=== PATIENT | female | born 1980 | race Hispanic/Latino ===

== ENCOUNTER 2017-02-20 13:11 | Emergency (ER) | payer SELFPAY | END 2017-02-20 13:45 | disposition left against medical advice (07) | LOC: ED 13:11 | DX: R20.0 Anesthesia of skin (principal); R51 Headache; R03.0 Elevated blood-pressure reading, without diagnosis of hypertension; Z53.21 Procedure and treatment not carried out due to patient leaving prior to being seen by health care provider ==

== ENCOUNTER 2017-08-19 20:52 | Emergency (ER) | payer SELFPAY ==
[2017-08-19 21:28] VITALS: BP 181/100
[2017-08-19 22:27] LABS: Basophils % (Auto) 1.2 % (0.0-1.8); Hematocrit 40.3 % (30.3-42.9); Hemoglobin 13.8 gm/dl (10.1-14.3); Mean Corpuscular HGB Conc 34 % (30-34); Mean Corpuscular Hemoglobin 31 pg (28-32); Mean Corpuscular Volume 90 fl (79-97); Platelet Count 243 K/mm3 (140-440); Red Blood Count 4.46 M/mm3 (3.65-5.03); Red Cell Distribution Width 13.3 % (13.2-15.2); White Blood Count 13.3 K/mm3 (4.5-11.0)
[2017-08-19 22:33] LABS: Alanine Aminotransferase 11 units/L (7-56); Albumin 4.2 g/dL (3.9-5); Albumin/Globulin Ratio 1.2 %; Alkaline Phosphatase 108 units/L (35-129); BUN/Creatinine Ratio 15; Bilirubin,Total < 0.20 mg/dL (0.1-1.2); Blood Urea Nitrogen 9 mg/dL (7-17); Calcium 9.7 mg/dL (8.4-10.2); Carbon Dioxide 28 mmol/L (22-30); Glucose 115 mg/dL (65-100); Lipase 59 units/L (13-60); Total Protein 7.6 g/dL (6.3-8.2)
[2017-08-19 22:34] LABS: Anion Gap 15 mmol/L; Chloride 98.5 mmol/L (98-107); Potassium 3.8 mmol/L (3.6-5.0); Sodium 138 mmol/L (137-145)
[2017-08-19 22:51] LABS: Bilirubin,Urine NEG (Negative); Blood,Urine NEG (Negative); Ketones,Urine NEG (Negative); Leukocyte Esterase,Urine NEG (Negative); Nitrite,Urine NEG (Negative); Protein,Urine <15 mg/dL mg/dL (Negative); Urobilinogen,Urine < 2.0 mg/dL (<2.0)
== END 2017-08-20 01:30 | disposition left against medical advice (07) ==
LOC: ED 20:52
DX: R10.32 Left lower quadrant pain (principal); R11.0 Nausea; Z53.21 Procedure and treatment not carried out due to patient leaving prior to being seen by health care provider
CPT/HCPCS: 36415; 80053; 81001; 83690; 85025

== ENCOUNTER 2019-09-18 22:49 | Emergency (ER) | payer SELFPAY ==
--- NOTE | 2019-09-18 23:37 | Emergency Department Report ---
Chief Complaint: Dental/Oral Stated Complaint: MOUTH ABCESS Time Seen by Provider: 09/18/19 23:34 - HPI History of Present Illness: Mrs. Welsh is a very pleasant 39-year-old female who presents with pain related to dental infection. Her PCP prescribed clindamycin and ibuprofen. She still has persistent pain. On exam today in the left upper gumline extensive tooth decay. No facial cellulitis. No trismus. No neck swelling. She was given referral to dental clinics. Medical screening exam performed and completed. No evidence of acute emergent condition at this time. No airway compromise. - Exam Vital Signs: Vital Signs 09/18/19 22:54 Temperature 97.7 F Pulse Rate 108 H Respiratory 18 Rate Blood Pressure 160/83 O2 Sat by Pulse 98 Oximetry MSE screening note: Focused history and physical exam performed. Due to findings the following was ordered: ED Disposition for MSE Clinical Impression: Pain due to dental caries Disposition: Z- MED SCREENING EXAM-LEFT Condition: Stable Referrals: [facility] [Outside] - 3-5 Days
[2019-09-19 00:08] VITALS: BP 155/77
== END 2019-09-19 00:10 | disposition left against medical advice (07) ==
LOC: ED 22:49
DX: K02.9 Dental caries, unspecified (principal)

== ENCOUNTER 2020-09-14 00:37 | Inpatient (IN) | payer OTHER ==
[2020-09-14] MEDS ORDERED: IPRATROPIUM/ALBUTEROL SULFATE 3 ML AMPUL.NEB IH ONE ×2 (01:23→14:18)
[2020-09-14] MEDS ORDERED: MAGNESIUM SULFATE 2 GM/50 ML BAG IV ONE (01:23)
[2020-09-14] MEDS ORDERED: dexAMETHasone 4 MG/ML VIAL IV ONE (01:23)
--- NOTE | 2020-09-14 01:28 | Emergency Department Report ---
ED Asthma HPI - General Chief Complaint: Dyspnea/Respdistress Stated Complaint: DIFFICULTY BREATHING PUI?: No Time Seen by Provider: 09/14/20 01:17 Source: patient Mode of arrival: Ambulatory Limitations: No Limitations - History of Present Illness Initial Comments: Patient is a 40-year-old female that presents emergency room with complaints of shortness of breath, cough, wheezing. Patient states her symptoms started 2 days ago. Patient denies fever and chills. Patient denies nausea vomiting. Patient denies chest pain. Patient states shortness of breath is better with rest and worse with exertion. Patient states she is used her inhalers multiple times a day with minimal relief. Patient states she had Covid back in February. Patient denies diarrhea. Patient denies recent travel. Patient denies recent international travel. Patient denies exposure to the novel coronavirus. Patient denies sick contacts. Patient denies fever and chills. Patient denies cough. Patient denies diarrhea. Patient denies coming in contact with anybody with symptoms of the novel coronavirus. MD Complaint: shortness of breath, wheezing -: Sudden Asthma History: childhood onset Severity: severe Associated Symptoms: dry cough Treatments Prior to Arrival: inhaled bronchodilator, inhaled steroid - Related Data Current Asthma Therapy: inhaled bronchodilator, inhaled steroid Previous Rx's Medication Instructions Recorded Last Taken Type Azithromycin [Zithromax Z-CORBIN] 250 mg PO DAILY #6 tablet 09/22/16 Unknown Rx Cefaclor 500 mg PO Q8H #30 capsule 09/22/16 Unknown Rx Ibuprofen [Motrin 600 MG tab] 600 mg PO Q8H PRN #21 tablet 09/22/16 Unknown Rx tiZANidine [Zanaflex 4mg TAB] 4 mg PO Q8H PRN #12 tablet 09/22/16 Unknown Rx Acetaminophen/Codeine [Tylenol #3] 1 tab PO Q6H PRN #15 tab 10/22/16 Unknown Rx Chlorhexidine Mouthwash [Peridex] 118 ml MM BID #1 bottle 10/22/16 Unknown Rx Clindamycin [Clindamycin CAP] 300 mg PO Q8H #21 cap 10/22/16 Unknown Rx Ibuprofen [Motrin] 600 mg PO Q8H PRN #20 tablet 10/22/16 Unknown Rx Allergies Allergy/AdvReac Type Severity Reaction Status Date / Time No Known Allergies Allergy Verified 12/21/14 01:59 ED Review of Systems ROS: Stated complaint: DIFFICULTY BREATHING Other details as noted in HPI Constitutional: denies: chills, fever Eyes: denies: eye pain, eye discharge, vision change ENT: denies: ear pain, throat pain Respiratory: see HPI, cough, shortness of breath, SOB with exertion, SOB at rest, wheezing Cardiovascular: denies: chest pain, palpitations Endocrine: no symptoms reported Gastrointestinal: denies: abdominal pain, nausea, diarrhea Genitourinary: denies: urgency, dysuria, discharge Musculoskeletal: denies: back pain, joint swelling, arthralgia Skin: denies: rash, lesions Neurological: denies: headache, weakness, paresthesias Psychiatric: denies: anxiety, depression Hematological/Lymphatic: denies: easy bleeding, easy bruising ED Past Medical Hx - Past Medical History Previous Medical History?: Yes Hx Hypertension: Yes Hx Asthma: Yes - Surgical History Past Surgical History?: Yes Additional Surgical History: tubal ligation. - Family History Family history: no significant - Social History Smoking Status: Current Every Day Smoker Substance Use Type: None - Medications Home Medications: Home Medications Medication Instructions Recorded Confirmed Last Taken Type Azithromycin [Zithromax Z-CORBIN] 250 mg PO DAILY #6 tablet 09/22/16 Unknown Rx Cefaclor 500 mg PO Q8H #30 capsule 09/22/16 Unknown Rx Ibuprofen [Motrin 600 MG tab] 600 mg PO Q8H PRN #21 tablet 09/22/16 Unknown Rx tiZANidine [Zanaflex 4mg TAB] 4 mg PO Q8H PRN #12 tablet 09/22/16 Unknown Rx Acetaminophen/Codeine [Tylenol #3] 1 tab PO Q6H PRN #15 tab 10/22/16 Unknown Rx Chlorhexidine Mouthwash [Peridex] 118 ml MM BID #1 bottle 10/22/16 Unknown Rx Clindamycin [Clindamycin CAP] 300 mg PO Q8H #21 cap 10/22/16 Unknown Rx Ibuprofen [Motrin] 600 mg PO Q8H PRN #20 tablet 10/22/16 Unknown Rx ED Physical Exam - General Limitations: No Limitations General appearance: alert, in distress - Head Head exam: Present: atraumatic, normocephalic - Eye Eye exam: Present: normal appearance - ENT ENT exam: Present: mucous membranes dry - Neck Neck exam: Present: normal inspection - Respiratory Respiratory exam: Present: respiratory distress, decreased breath sounds - Cardiovascular Cardiovascular Exam: Present: regular rate, normal rhythm. Absent: systolic murmur, diastolic murmur, rubs, gallop - GI/Abdominal GI/Abdominal exam: Present: soft, normal bowel sounds - Extremities Exam Extremities exam: Present: normal inspection - Back Exam Back exam: Present: normal inspection - Neurological Exam Neurological exam: Present: alert, oriented X3 - Psychiatric Psychiatric exam: Present: normal affect, normal mood - Skin Skin exam: Present: warm, dry, intact, normal color. Absent: rash ED Course Vital Signs 09/14/20 09/14/20 09/14/20 00:44 00:46 01:37 Temperature 97.8 F Pulse Rate 125 H 125 H 130 H Pulse Rate [ Anterior Bilateral Throughout] Respiratory 18 24 Rate Respiratory Rate [Anterior Bilateral Throughout] Blood Pressure 164/141 O2 Sat by Pulse 92 91 95 Oximetry 09/14/20 01:43 Temperature Pulse Rate Pulse Rate [ 122 H Anterior Bilateral Throughout] Respiratory Rate Respiratory 23 Rate [Anterior Bilateral Throughout] Blood Pressure O2 Sat by Pulse Oximetry - Reevaluation(s) Reevaluation #1: Patient receiving albuterol treatment. Patient is off BiPAP. Patient's work to breathe has improved. 09/14/20 01:34 Reevaluation #2: Patient is on BiPAP. Patient was given Ativan for anxiety. Patient states she is feeling much better. Patient's lung sounds have improved. Patient still having some wheezing. Patient's work to breathe has decreased. 09/14/20 02:08 Reevaluation #3: Patient's work to breathe has improved. Patient still on BiPAP. Patient states she is feeling better. I discussed all results with patient. I discussed plan of care with patient. Patient agrees with plan of care and admission. Patient to be admitted to the hospitalist service. 09/14/20 03:48 - Consultations Consultation #1: Hospitalist consulted for admission. Hospitalist to admit patient. 09/14/20 03:49 ED Medical Decision Making - Lab Data Result diagrams: 09/14/20 01:27 09/14/20 01:27 - Radiology Data Radiology results: report reviewed, image reviewed interpreted by me: Chest x-ray: No pneumonia, no pneumothorax, no foreign body, no osseous findings, no acute findings CHEST 1 VIEW 09/14/2020 12:44 AM INDICATION / CLINICAL INFORMATION: Difficulty breathing. COMPARISON: None available. FINDINGS: SUPPORT DEVICES: None. HEART / MEDIASTINUM: No significant abnormality. LUNGS / PLEURA: No significant pulmonary or pleural abnormality. No pneumothorax. ADDITIONAL FINDINGS: No significant additional findings. IMPRESSION: 1. No acute findings. - Medical Decision Making Patient is a 40-year-old female that presents emergency room with complaints of shortness of breath, difficulty breathing, wheezing, cough. Patient has been vomiting for 2 days and worsening. Patient has taken multiple times her outpat ient therapy and has failed. Patient presents to the emergency room in triage and was found to be hypoxic. Patient was placed on oxygen and BiPAP immediately after initial evaluation. Patient was given DuoNeb, magnesium is Decadron. Patient responded well to treatment. Patient's work to breathe improved with BiPAP. Patient did complain of anxiety and was given a milligram of Ativan which patient responded well. Patient had labs which were essentially unremarkable. Patient had a chest x-ray which was negative for acute findings. Patient admitted to the hospital service for further evaluation treatment and observation. - Differential Diagnosis Hypoxia, asthma, status asthmaticus, bronchitis, pneumonia Critical Care Time: Yes Critical care time in (mins) excluding proc time.: 35 Critical care attestation.: If time is entered above; I have spent that time in minutes in the direct care of this critically ill patient, excluding procedure time. Critical Care Time: 35 minutes ED Disposition Clinical Impression: SOB (shortness of breath), Hypoxia Status asthmaticus Qualifiers: Asthma severity: severe Asthma persistence: persistent Qualified Code(s): J45.52 - Severe persistent asthma with status asthmaticus Respiratory failure Qualifiers: Chronicity: acute Respiratory failure complication: hypoxia Qualified Code(s): J96.01 - Acute respiratory failure with hypoxia Disposition: OP ADMIT IP TO THIS HOSP Is pt being admited?: Yes Does the pt Need Aspirin: No Condition: Critical Time of Disposition: 03:50
[2020-09-14] MEDS ORDERED: LORazepam 2 MG/ML VIAL IV ONE ×2 (01:51→04:56)
--- NOTE | 2020-09-14 01:51 | XRay Report ---
CHEST 1 VIEW 09/14/2020 12:44 AM INDICATION / CLINICAL INFORMATION: Difficulty breathing. COMPARISON: None available. FINDINGS: SUPPORT DEVICES: None. HEART / MEDIASTINUM: No significant abnormality. LUNGS / PLEURA: No significant pulmonary or pleural abnormality. No pneumothorax. ADDITIONAL FINDINGS: No significant additional findings. IMPRESSION: 1. No acute findings. Signer Name: Conrad Conrad MD Signed: 09/14/2020 1:46 AM Workstation Name: [id number]
[2020-09-14] MEDS ORDERED: LORazepam 2 MG/ML VIAL ONE ×2 (01:52→06:12)
[2020-09-14 01:59] LABS: Basophils # (Auto) 0.2 K/mm3 (0.0-0.1); Basophils % (Auto) 1.9 % (0.0-1.8); Eosinophils # (Auto) 1.2 K/mm3 (0.0-0.4); Eosinophils % (Auto) 11.1 % (0.0-4.3); Hematocrit 41.6 % (30.3-42.9); Hemoglobin 14.1 gm/dl (10.1-14.3); Lymphocytes % (Auto) 17.9 % (13.4-35.0); Mean Corpuscular HGB Conc 34 % (30-34); Mean Corpuscular Volume 92 fl (79-97); Monocytes # (Auto) 0.7 K/mm3 (0.0-0.8); Monocytes % (Auto) 6.4 % (0.0-7.3); Platelet Count 236 K/mm3 (140-440); Red Blood Count 4.53 M/mm3 (3.65-5.03); Red Cell Distribution Width 13.5 % (13.2-15.2)
[2020-09-14 02:02] LABS: BUN/Creatinine Ratio 11; Blood Urea Nitrogen 9 mg/dL (7-17); Hemolysis Index 26
[2020-09-14] MEDS ORDERED: SODIUM CHLORIDE 0.9% 1000 ML 1,000 ML IV ONE (04:55)
[2020-09-14] MEDS ORDERED: SODIUM CHLORIDE 0.9% 1000 ML 1,000 ML ONE (06:12)
[2020-09-14 06:55] LABS: ABG Base Excess -1.5 mmol/L (-2.0-3.0); ABG HCO3 23.8 mmol/L (20.0-26.0); ABG Methemoglobin 0.6 % (0.0-1.5); ABG Oxygen Saturation 96.2 % (95.0-99.0); ABG PH 7.371 pH Units (7.350-7.450); ABG PO2 80.1 mm Hg (80.0-90.0)
--- NOTE | 2020-09-14 08:18 | History and Physical Report ---
History of Present Illness Date of examination: 09/14/20 Date of admission: 09/14/20 04:25 Chief complaint: SOB History of present illness: Patient is a 40-year-old female with h/o COVID19 PNA on February, HTN, asthma that presents emergency room with complaints of shortness of breath, cough, wheezing for 2 days. Patient denies fever, chills, nausea vomiting or chest pain. Patient states shortness of breath is better with rest and worse with exertion. Patient states she is used her inhalers multiple times a day with minimal relief. In the ER cxr showed no infiltrates, she was placed on BiPAP given nebulizer breathing treatments. She was then called for admission for further evaluation and management. Past Medical Hx - Past Medical History Previous Medical History?: Yes Hx Hypertension: Yes Hx Asthma: Yes - Surgical History Past Surgical History?: Yes Additional Surgical History: tubal ligation. - Family History Family history: no significant h/o stroke, CAD, DM or cancer - Social History Smoking Status: Current Every Day Smoker Substance Use Type: None Review of Systems Constitutional: denies: chills, fever Eyes: denies: eye pain, eye discharge, vision change ENT: denies: ear pain, throat pain Respiratory: see HPI, cough, shortness of breath, SOB with exertion, SOB at rest, wheezing Cardiovascular: denies: chest pain, palpitations Endocrine: no symptoms reported Gastrointestinal: denies: abdominal pain, nausea, diarrhea Genitourinary: denies: urgency, dysuria, discharge Musculoskeletal: denies: back pain, joint swelling, arthralgia Skin: denies: rash, lesions Neurological: denies: headache, weakness, paresthesias Psychiatric: denies: anxiety, depression Hematological/Lymphatic: denies: easy bleeding, easy bruising Medications and Allergies Allergies Allergy/AdvReac Type Severity Reaction Status Date / Time No Known Allergies Allergy Verified 12/21/14 01:59 Home Medications Medication Instructions Recorded Confirmed Last Taken Type LORazepam [Ativan] 1 mg PO QHS 09/14/20 09/14/20 09/13/20 History Losartan [Cozaar] 25 mg PO BID 09/14/20 09/14/20 09/13/20 History Exam - Physical Exam Narrative exam: GENERAL: well-developed and well-nourished white female lying on bed appeared to be in mild discomfort. HEENT: Normocephalic. Atraumatic. No conjunctival congestion or icterus. Patient has moist mucous membranes. NECK: Supple. Trachea midline. CHEST/LUNGS: Diffuse wheezes auscultated bilaterally, breathing nonlabored. No crackles or rhonchi. HEART/CARDIOVASCULAR: Regular in rate and rhythm. S1 and S2 positive. ABDOMEN: Abdomen is soft, nontender. Patient has normal bowel sounds. SKIN: There is no rash. Warm and dry. NEURO: No focal motor deficit. Follows command. MUSCULOSKELETAL: No joint effusion or tenderness. EXTRIMITY: No edema, no cyanosis or clubbing. PSYCH: Cooperative. - Constitutional Vitals: Temp Pulse Resp BP Pulse Ox 97.8 F 100 H 25 H 118/82 96 09/14/20 00:44 09/14/20 07:57 09/14/20 07:57 09/14/20 07:57 09/14/20 07:57 Results - Labs CBC & Chem 7: 09/14/20 01:27 09/14/20 01:27 Labs: Abnormal lab results 09/14/20 09/14/20 09/14/20 Range/Units 01:27 01:27 06:45 WBC 11.2 H (4.5-11.0) K/mm3 Eos % (Auto) 11.1 H (0.0-4.3) % Baso % (Auto) 1.9 H (0.0-1.8) % Eos # (Auto) 1.2 H (0.0-0.4) K/mm3 Baso # (Auto) 0.2 H (0.0-0.1) K/mm3 Oxyhemoglobin 94.3 L (95.0-99.0) % Glucose 130 H (65-100) mg/dL - Imaging and Cardiology Chest x-ray: report reviewed (No acute findings) Assessment and Plan Acute asthma exacerbation -We'll admit the patient to remote telemetry - Will provide scheduled nebulizer breathing treatment and as needed - Place on empiric steroid and antibiotic - will get sputum culture, chest x-ray was unremarkable Acute hypoxic respiratory failure -Likely due to acute asthma exacerbation -Patient placed on BiPAP, will continue to monitor - Provide supplemental oxygen to keep oxygen saturation above 92% - Consult pulmonary Hypertension - We will resume home medications, monitor BP History of COVID-19 -Patient had Covid infection back on February and she recovered -We will reorder the test Provide DVT prophylaxis with Lovenox.
[2020-09-14] MEDS ORDERED: ONDANSETRON 4 MG/2 ML INJ IV PRN (08:23)
[2020-09-14] MEDS ORDERED: hydrALAZINE 20 MG/1 ML INJ IV PRN (08:23)
[2020-09-14] MEDS ORDERED: cefTRIAXone/NS 1 GM/50 ML 1 GM/50 ML BAG IV ONE (10:22)
[2020-09-14] MEDS ORDERED: FAMOTIDINE 20 MG TAB ONE (10:23)
[2020-09-14] MEDS ORDERED: AZITHROMYCIN 250 MG TAB ONE (10:23)
[2020-09-14] MEDS: cefTRIAXone/NS 1 GM/50 ML 1 GM/50 ML BAG IV SCH (10:27)
[2020-09-14] MEDS: AZITHROMYCIN 250 MG TAB PO SCH (10:28)
[2020-09-14] MEDS: SENNOSIDES 8.6 MG TAB PO SCH ×2 (10:28→21:17)
[2020-09-14] MEDS: FAMOTIDINE 10 MG TAB PO SCH ×2 (10:28→21:17)
[2020-09-14] MEDS: IPRATROPIUM/ALBUTEROL SULFATE 3 ML AMPUL.NEB IH SCH ×2 (14:32→21:15)
[2020-09-14] MEDS ORDERED: methylPREDNISolone Sod Succinate 40 MG/1 ML INJ ONE (14:35)
[2020-09-14] MEDS: methylPREDNISolone Sod Succinate 40 MG/1 ML INJ IV SCH ×2 (14:37→21:19)
[2020-09-14] MEDS ORDERED: FLU VACC QUAD 2020-2021 (6 months +)/PF 60 0.5 ML SYRINGE IM ONE (19:53)
[2020-09-14] MEDS: BUDESONIDE 0.5 MG/2 ML NEBU IH SCH (21:15)
[2020-09-14] MEDS: ENOXAPARIN 40 MG/0.4 ML INJ SUB-Q SCH (21:17)
[2020-09-14] MEDS: MONTELUKAST 10 MG TAB PO SCH (21:17)
[2020-09-15] MEDS: IPRATROPIUM/ALBUTEROL SULFATE 3 ML AMPUL.NEB IH SCH ×4 (02:39→21:18)
[2020-09-15] MEDS: methylPREDNISolone Sod Succinate 40 MG/1 ML INJ IV SCH ×3 (06:20→22:52)
[2020-09-15] MEDS: BUDESONIDE 0.5 MG/2 ML NEBU IH SCH ×2 (07:58→21:18)
[2020-09-15] MEDS: cefTRIAXone/NS 1 GM/50 ML 1 GM/50 ML BAG IV SCH (09:06)
[2020-09-15] MEDS: FAMOTIDINE 10 MG TAB PO SCH ×2 (09:07→22:52)
[2020-09-15] MEDS: SENNOSIDES 8.6 MG TAB PO SCH ×2 (09:07→22:52)
[2020-09-15] MEDS: AZITHROMYCIN 250 MG TAB PO SCH (09:07)
--- NOTE | 2020-09-15 10:39 | Progress Note ---
Assessment and Plan Acute asthma exacerbation -monitor patient to remote telemetry -Continue to provide scheduled nebulizer breathing treatment and as needed -Continue on empiric steroid and antibiotic - chest x-ray was unremarkable Acute hypoxic respiratory failure -Likely due to acute asthma exacerbation -s/p BiPAP but now on nasal cannula, will continue to monitor - Provide supplemental oxygen to keep oxygen saturation above 92% Hypertension - resumed home medications, monitor BP History of COVID-19 -Patient had Covid infection back on February and she recovered -reorder the test and currently pending Provide DVT prophylaxis with Lovenox. 09/15: Pending covid 19 test, cont iv steroid, nebs Subjective Date of service: 09/15/20 Interval history: Patient seen and examined. Medical records and medication list reviewed. No acute event overnight noted by the RN. Patient still has wheezes and difficulty breathing on exertion. Patient is tolerating diet. Covid test was done but result is pending Discussed plan of care at bedside with patient. Objective - Exam Narrative Exam: GENERAL: well-developed and well-nourished white female lying on bed appeared to be in mild discomfort. HEENT: Normocephalic. Atraumatic. No conjunctival congestion or icterus. Patient has moist mucous membranes. NECK: Supple. Trachea midline. CHEST/LUNGS: + wheezes auscultated bilaterally, breathing nonlabored. No electrician aircraft ckles or rhonchi. HEART/CARDIOVASCULAR: Regular in rate and rhythm. S1 and S2 positive. ABDOMEN: Abdomen is soft, nontender. Patient has normal bowel sounds. SKIN: There is no rash. Warm and dry. NEURO: No focal motor deficit. Follows command. MUSCULOSKELETAL: No joint effusion or tenderness. EXTRIMITY: No edema, no cyanosis or clubbing. PSYCH: Cooperative. - Constitutional Vitals: Vital Signs - 12hr 09/15/20 09/15/20 09/15/20 02:39 07:58 08:00 Pulse Rate [ 94 H 82 Posterior Bilateral Throughout] Respiratory 16 17 Rate [Posterior Bilateral Throughout] O2 Sat by Pulse 99 Oximetry - Labs CBC & Chem 7: 09/14/20 01:27 09/14/20 01:27
[2020-09-15] MEDS ORDERED: FLU VACC QUAD 2020-2021 (6 months +)/PF 60 0.5 ML SYRINGE IM ONE (12:00)
[2020-09-15] MEDS: ENOXAPARIN 40 MG/0.4 ML INJ SUB-Q SCH (22:52)
[2020-09-15] MEDS: ACETAMINOPHEN 325 MG TAB PO PRN (22:52)
[2020-09-15] MEDS: MONTELUKAST 10 MG TAB PO SCH (22:52)
[2020-09-16] MEDS: ACETAMINOPHEN 325 MG TAB PO PRN (05:28)
[2020-09-16] MEDS: methylPREDNISolone Sod Succinate 40 MG/1 ML INJ IV SCH (05:28)
[2020-09-16] MEDS: BUDESONIDE 0.5 MG/2 ML NEBU IH SCH (09:31)
[2020-09-16] MEDS: IPRATROPIUM/ALBUTEROL SULFATE 3 ML AMPUL.NEB IH SCH ×3 (09:32→13:42)
[2020-09-16] MEDS: AZITHROMYCIN 250 MG TAB PO SCH (11:28)
[2020-09-16] MEDS: cefTRIAXone/NS 1 GM/50 ML 1 GM/50 ML BAG IV SCH (11:28)
[2020-09-16] MEDS: FAMOTIDINE 10 MG TAB PO SCH (11:28)
[2020-09-16] MEDS: SENNOSIDES 8.6 MG TAB PO SCH (11:28)
[2020-09-16 12:35] VITALS: BP 122/79
--- NOTE | 2020-09-16 14:13 | Discharge Summary ---
Providers - Providers Date of Admission: 09/14/20 04:25 Date of discharge: 09/16/20 Attending physician: STEFAN SALES Primary care physician: ENVIRONMENTAL DESIGNER Hospitalization Condition: Critical Hospital course: Patient is a 40-year-old female with h/o COVID19 PNA on February, HTN, asthma that presents emergency room with complaints of shortness of breath, cough, wheezing for 2 days. Patient denied fever, chills, nausea vomiting or chest pain. In the ER cxr showed no infiltrates, she was placed on BiPAP given nebulizer breathing treatments and called for admission for further evaluation and management. Patient was admitted to medical floor with scheduled nebs, iv abx, iv steroids and supplemental O2 to keep O2 sat at 94%. Her repeat Covid test was negative. Patients symptom improved with medical management. Patient was then discharged home in stable condition with outpt f/u. Discharge Diagnosis: Acute asthma exacerbation Acute hypoxic respiratory failure -Likely due to acute asthma exacerbation -s/p BiPAP Hypertension - resumed home medications, monitored BP History of COVID-19 -Patient had Covid infection back on February and she recovered -Repeat test was negative -Provided DVT prophylaxis with Lovenox. Disposition: DC-01 TO HOME OR SELFCARE Time spent for discharge: 34 minutes Core Measure Documentation - Palliative Care Palliative Care/ Comfort Measures: Not Applicable - Core Measures Any of the following diagnoses?: none Exam - Physical Exam Narrative exam: GENERAL: well-developed and well-nourished white female lying on bed appeared to be in no discomfort. HEENT: Normocephalic. Atraumatic. No conjunctival congestion or icterus. Patient has moist mucous membranes. NECK: Supple. Trachea midline. CHEST/LUNGS: no wheezes auscultated bilaterally, breathing nonlabored. No crackles or rhonchi. HEART/CARDIOVASCULAR: Regular in rate and rhythm. S1 and S2 positive. ABDOMEN: Abdomen is soft, nontender. Patient has normal bowel sounds. SKIN: There is no rash. Warm and dry. NEURO: No focal motor deficit. Follows command. MUSCULOSKELETAL: No joint effusion or tenderness. EXTRIMITY: No edema, no cyanosis or clubbing. PSYCH: Cooperative. - Constitutional Vitals: Temp Pulse Resp BP Pulse Ox 99.0 F 115 H 19 122/79 95 09/16/20 10:38 09/16/20 13:42 09/16/20 13:42 09/16/20 10:38 09/16/20 10:38 Plan Activity: advance as tolerated Weight Bearing Status: Weight Bear as Tolerated Diet: low fat, low salt Follow up with: PRIMARY CARE,MD [Primary Care Provider] - 7 Days Prescriptions: Prednisone [predniSONE 10 mg (6-Day Pack, 21 Tabs)] 10 mg PO .TAPER #1 tab.ds.pk Albuterol Mdi (or & Nicu Only) [ProAir HFA Inhaler] 2 puff IH QID PRN #8.5 gram PRN Reason: Shortness Of Breath Budesonide/Formoterol Fumarate [Symbicort 80-4.5 Mcg Inhaler] 10.2 gm IH BID #1 hfa.aer.ad Azithromycin [Zithromax TAB] 500 mg PO QDAY #3 tablet
== END 2020-09-16 17:30 | disposition home or self-care (01) | DRG 208 ==
LOC: ED 00:37 → IMCU 04:25 → 3A 08:33
PROVIDERS: ADMIT Internal Medicine Geriatric Medicine; ATTEND Internal Medicine
PROC: 5A1935Z Respiratory Ventilation, Less than 24 Consecutive Hours (ICD-10-PCS; principal; 2020-09-14)
PROC: 4A033R1 Measurement of Arterial Saturation, Peripheral, Percutaneous Approach (ICD-10-PCS; 2020-09-14)
DX: J96.01 Acute respiratory failure with hypoxia (principal); J45.902 Unspecified asthma with status asthmaticus; Z20.828 Contact with and (suspected) exposure to other viral communicable diseases; I10 Essential (primary) hypertension; Z98.51 Tubal ligation status; Z79.899 Other long term (current) drug therapy
CPT/HCPCS: 36415; 36600; 71045; 80048; 82803; 85025; 87116; 94640; 94644; 94760; G0378; J0696; J1100; J1650; J2060; J2920; J3475; J7030; U0003

== ENCOUNTER 2020-12-26 15:34 | Emergency (ER) | payer SELFPAY ==
--- NOTE | 2020-12-26 15:45 | Event Note ---
ED Screening Note Date of service: 12/26/20 Time: 15:45 ED Screening Note: Patient complains of dizziness x3 days History of hypertension, asthma, and anxiety Denies headache, vision changes, chest pain, or shortness of breath Describes dizziness as lightheadedness This initial assessment/diagnostic orders/clinical plan/treatment(s) is/are subject to change based on patients health status, clinical progression and re- assessment by fellow clinical providers in the ED. Further treatment and workup at subsequent clinical providers discretion. Patient/guardian urged not to elope from the ED as their condition may be serious if not clinically assessed and managed. Initial orders include: Labs EKG
[2020-12-26 16:04] LABS: Basophils # (Auto) 0.1 K/mm3 (0.0-0.1); Basophils % (Auto) 1.3 % (0.0-1.8); Eosinophils % (Auto) 0.4 % (0.0-4.3); Hematocrit 40.7 % (30.3-42.9); Hemoglobin 13.8 gm/dl (10.1-14.3); Lymphocytes # (Auto) 2.5 K/mm3 (1.2-5.4); Lymphocytes % (Auto) 31.6 % (13.4-35.0); Mean Corpuscular HGB Conc 34 % (30-34); Mean Corpuscular Volume 92 fl (79-97); Monocytes # (Auto) 0.6 K/mm3 (0.0-0.8); Monocytes % (Auto) 8.1 % (0.0-7.3); Platelet Count 260 K/mm3 (140-440); Red Blood Count 4.41 M/mm3 (3.65-5.03); Red Cell Distribution Width 13.1 % (13.2-15.2)
[2020-12-26 16:29] LABS: Alanine Aminotransferase 10 units/L (7-56); Albumin 4.7 g/dL (3.9-5); Blood Urea Nitrogen 13 mg/dL (7-17); Calcium 10.2 mg/dL (8.4-10.2); Hemolysis Index 5
[2020-12-26 16:33] LABS: BUN/Creatinine Ratio 19
[2020-12-26 17:10] LABS: Bilirubin,Urine NEG (Negative); Blood,Urine NEG (Negative); Color,Urine Yellow (Yellow); Protein,Urine <15 mg/dL mg/dL (Negative); Urobilinogen,Urine < 2.0 mg/dL (<2.0)
[2020-12-26] MEDS ORDERED: SODIUM CHLORIDE 0.9% 1000 ML 1,000 ML IV ONE (21:13)
--- NOTE | 2020-12-26 21:13 | Emergency Department Report ---
<VEGA HUERTA - Last Filed: 12/26/20 21:35> ED General Adult HPI - General Chief complaint: Dizziness Stated complaint: DIZZINESS Time Seen by Provider: 12/26/20 15:36 Source: patient Mode of arrival: Ambulatory Limitations: No Limitations - History of Present Illness Initial comments: Patient complains of dizziness x3 days History of hypertension, asthma, and anxiety Denies headache, vision changes, chest pain, or shortness of breath Describes dizziness as lightheadedness Patient states dizziness occurs with changes in position of her body. No nausea/vomiting or tinnitus per patient. Patient also denies head trauma -: Gradual - Related Data Home Medications Medication Instructions Recorded Confirmed Last Taken LORazepam [Ativan] 1 mg PO QHS 09/14/20 09/14/20 09/13/20 Losartan [Cozaar] 25 mg PO BID 09/14/20 09/14/20 09/13/20 Previous Rx's Medication Instructions Recorded Last Taken Type Albuterol Mdi (or & Nicu Only) 2 puff IH QID PRN #8.5 gram 09/16/20 Unknown Rx [ProAir HFA Inhaler] Azithromycin [Zithromax TAB] 500 mg PO QDAY #3 tablet 09/16/20 Unknown Rx Budesonide/Formoterol Fumarate 10.2 gm IH BID #1 hfa.aer.ad 09/16/20 Unknown Rx [Symbicort 80-4.5 Mcg Inhaler] Prednisone [predniSONE 10 mg 10 mg PO .TAPER #1 tab.ds.pk 09/16/20 Unknown Rx (6-Day Pack, 21 Tabs)] Allergies Allergy/AdvReac Type Severity Reaction Status Date / Time No Known Allergies Allergy Verified 12/21/14 01:59 ED Review of Systems Constitutional: denies: chills, fever, malaise, weakness Eyes: denies: eye pain ENT: denies: ear pain Respiratory: denies: cough, shortness of breath Cardiovascular: denies: chest pain Gastrointestinal: denies: abdominal pain, nausea, vomiting Genitourinary: denies: urgency, dysuria, frequency, hematuria, abnormal menses, dyspareunia Musculoskeletal: denies: back pain Neurological: denies: headache, weakness, numbness, paresthesias, abnormal gait Hematological/Lymphatic: denies: easy bleeding, easy bruising ED Past Medical Hx - Past Medical History Previous Medical History?: Yes Hx Hypertension: Yes Hx Asthma: Yes - Surgical History Past Surgical History?: Yes Additional Surgical History: tubal ligation. - Social History Smoking Status: Never Smoker Substance Use Type: None - Medications Home Medications: Home Medications Medication Instructions Recorded Confirmed Last Taken Type LORazepam [Ativan] 1 mg PO QHS 09/14/20 09/14/20 09/13/20 History Losartan [Cozaar] 25 mg PO BID 09/14/20 09/14/20 09/13/20 History Albuterol Mdi (or & Nicu Only) 2 puff IH QID PRN #8.5 gram 09/16/20 Unknown Rx [ProAir HFA Inhaler] Azithromycin [Zithromax TAB] 500 mg PO QDAY #3 tablet 09/16/20 Unknown Rx Budesonide/Formoterol Fumarate 10.2 gm IH BID #1 hfa.aer.ad 09/16/20 Unknown Rx [Symbicort 80-4.5 Mcg Inhaler] Prednisone [predniSONE 10 mg 10 mg PO .TAPER #1 tab.ds.pk 09/16/20 Unknown Rx (6-Day Pack, 21 Tabs)] ED Physical Exam - General Limitations: No Limitations General appearance: alert, in no apparent distress - Head Head exam: Present: atraumatic, normal inspection - Eye Eye exam: Present: normal appearance, PERRL, EOMI. Absent: scleral icterus - ENT ENT exam: Present: normal exam - Neck Neck exam: Present: normal inspection - Respiratory Respiratory exam: Present: normal lung sounds bilaterally. Absent: respiratory distress - Cardiovascular Cardiovascular Exam: Present: regular rate, normal rhythm. Absent: systolic murmur, diastolic murmur, rubs, gallop - GI/Abdominal GI/Abdominal exam: Present: soft, normal bowel sounds. Absent: distended, tenderness, guarding, rebound, rigid - Extremities Exam Extremities exam: Present: full ROM. Absent: calf tenderness (No swelling or tenderness noted to lower legs bilaterally) - Back Exam Back exam: Present: normal inspection - Neurological Exam Neurological exam: Present: alert, oriented X3, CN II-XII intact, normal gait. Absent: motor sensory deficit - Expanded Neurological Exam Expanded Cerebellar function: Finger to Nose: Normal, Heel to Leblanc: Normal, Romberg: Normal Sensory exam: Upper Extremity Light Touch: Normal, Lower Extremity Light Touch: Normal Motor strength exam: RUE: 5, LUE: 5, RLE: 5, LLE: 5 - Psychiatric Psychiatric exam: Present: normal affect, normal mood - Skin Skin exam: Present: warm, dry, intact, normal color. Absent: rash, cyanosis, diaphoretic, ecchymosis ED Medical Decision Making - Lab Data Result diagrams: 12/26/20 15:41 12/26/20 15:41 Lab Results 12/26/20 12/26/20 12/26/20 Range/Units 15:41 15:41 15:47 WBC 7.9 (4.5-11.0) K/mm3 RBC 4.41 (3.65-5.03) M/mm3 Hgb 13.8 (10.1-14.3) gm/dl Hct 40.7 (30.3-42.9) % MCV 92 (79-97) fl MCH 31 (28-32) pg MCHC 34 (30-34) % RDW 13.1 L (13.2-15.2) % Plt Count 260 (140-440) K/mm3 Lymph % (Auto) 31.6 (13.4-35.0) % [place] % (Auto) 8.1 H (0.0-7.3) % Eos % (Auto) 0.4 (0.0-4.3) % Baso % (Auto) 1.3 (0.0-1.8) % Lymph # (Auto) 2.5 (1.2-5.4) K/mm3 [place] # (Auto) 0.6 (0.0-0.8) K/mm3 Eos # (Auto) 0.0 (0.0-0.4) K/mm3 Baso # (Auto) 0.1 (0.0-0.1) K/mm3 Seg Neutrophils % 58.6 (40.0-70.0) % Seg Neutrophils # 4.7 (1.8-7.7) K/mm3 Sodium 135 L (137-145) mmol/L Potassium 3.4 L (3.6-5.0) mmol/L Chloride 95.1 L (98-107) mmol/L Carbon Dioxide 29 (22-30) mmol/L Anion Gap 14 mmol/L BUN 13 (7-17) mg/dL Creatinine 0.7 (0.6-1.2) mg/dL Estimated GFR > 60 ml/min BUN/Creatinine Ratio 19 % Glucose 118 H (65-100) mg/dL Calcium 10.2 (8.4-10.2) mg/dL Total Bilirubin 0.30 (0.1-1.2) mg/dL AST 12 (5-40) units/L ALT 10 (7-56) units/L Alkaline Phosphatase 78 (35-129) units/L Troponin T < 0.010 (0.00-0.029) ng/mL Total Protein 7.9 (6.3-8.2) g/dL Albumin 4.7 (3.9-5) g/dL Albumin/Globulin Ratio 1.5 % Urine Color (Yellow) Urine Turbidity (Clear) Urine pH (5.0-7.0) Ur Specific [place] (1.003-1.030) Urine Protein (Negative) mg/dL Urine Glucose (UA) (Negative) mg/dL Urine Ketones (Negative) mg/dL Urine Blood (Negative) Urine Nitrite (Negative) Urine Bilirubin (Negative) Urine Urobilinogen (<2.0) mg/dL Ur Leukocyte Esterase (Negative) Urine WBC (Auto) (0.0-6.0) /HPF Urine RBC (Auto) (0.0-6.0) /HPF U Epithel Cells (Auto) (0-13.0) /HPF // Range/Units 16:26 WBC (4.5-11.0) K/mm3 RBC (3.65-5.03) M/mm3 Hgb (10.1-14.3) gm/dl Hct (30.3-42.9) % MCV (79-97) fl MCH (28-32) pg MCHC (30-34) % RDW (13.2-15.2) % Plt Count (140-440) K/mm3 Lymph % (Auto) (13.4-35.0) % [place] % (Auto) (0.0-7.3) % Eos % (Auto) (0.0-4.3) % Baso % (Auto) (0.0-1.8) % Lymph # (Auto) (1.2-5.4) K/mm3 [place] # (Auto) (0.0-0.8) K/mm3 Eos # (Auto) (0.0-0.4) K/mm3 Baso # (Auto) (0.0-0.1) K/mm3 Seg Neutrophils % (40.0-70.0) % Seg Neutrophils # (1.8-7.7) K/mm3 Sodium (137-145) mmol/L Potassium (3.6-5.0) mmol/L Chloride (98-107) mmol/L Carbon Dioxide (22-30) mmol/L Anion Gap mmol/L BUN (7-17) mg/dL Creatinine (0.6-1.2) mg/dL Estimated GFR ml/min BUN/Creatinine Ratio % Glucose (65-100) mg/dL Calcium (8.4-10.2) mg/dL Total Bilirubin (0.1-1.2) mg/dL AST (5-40) units/L ALT (7-56) units/L Alkaline Phosphatase (35-129) units/L Troponin T (0.00-0.029) ng/mL Total Protein (6.3-8.2) g/dL Albumin (3.9-5) g/dL Albumin/Globulin Ratio % Urine Color Yellow (Yellow) Urine Turbidity Clear (Clear) Urine pH 7.0 (5.0-7.0) Ur Specific [place] 1.016 (1.003-1.030) Urine Protein <15 mg/dl (Negative) mg/dL Urine Glucose (UA) Neg (Negative) mg/dL Urine Ketones Neg (Negative) mg/dL Urine Blood Neg (Negative) Urine Nitrite Neg (Negative) Urine Bilirubin Neg (Negative) Urine Urobilinogen < 2.0 (<2.0) mg/dL Ur Leukocyte Esterase Neg (Negative) Urine WBC (Auto) 1.0 (0.0-6.0) /HPF Urine RBC (Auto) 1.0 (0.0-6.0) /HPF U Epithel Cells (Auto) 2.0 (0-13.0) /HPF - Medical Decision Making Patient complains of dizziness x3 days History of hypertension, asthma, and anxiety Denies headache, vision changes, chest pain, or shortness of breath Describes dizziness as lightheadedness Patient states dizziness occurs with changes in position of her body. No nausea/vomiting or tinnitus per patient. Patient also denies head trauma Neuro exam is normal. No significant abnormalities noted on CBC. Anion gap noted to be 14 on CMP. UA is normal. Orthostatic vitals show orthostatic hypotension. Upon further questioning, patient admits to drinking less than 30 ounces of water a day. Given this, her orthostatic vitals, and her history of positional dizziness, will treat for orthostatic hypotension with fluids. Ciara ent given 1 L of normal saline. XIMENA Garcia to follow-up on EKG and post fluid evaluation. Discussed importance of drinking 60 to 80 ounces of water a day with patient and need for follow-up primary care doctor within 2 to 3 days. She verbalizes understanding. ED Disposition Clinical Impression: Orthostatic hypotension, Lightheadedness Disposition: -01 TO HOME OR SELFCARE Is pt being admited?: No Condition: Stable Instructions: Orthostatic Hypotension Additional Instructions: please increase your fluid intake over the next several days. follow up with your primary care doctor. return to the emergency room for any new or worsening symptoms. Referrals: VIJAY SMITH MD [Primary Care Provider] - 2-3 Days Print Language: ITALIAN <KEN SKY - Last Filed: 12/27/20 01:42> ED Review of Systems ROS: Stated complaint: DIZZINESS Other details as noted in HPI ED Course Vital Signs 12/26/20 12/26/20 12/26/20 15:47 21:25 22:25 Temperature 98.1 F 97.7 F Pulse Rate 110 H 90 Pulse Rate [ 89 Lying] Pulse Rate [ 100 H Sitting] Pulse Rate [ 102 H Standing] Respiratory 18 18 Rate Blood Pressure 130/98 Blood Pressure 115/76 [Left] Blood Pressure 111/72 [Lying] Blood Pressure 132/86 [Sitting] Blood Pressure 113/94 [Standing] O2 Sat by Pulse 100 96 Oximetry ED Medical Decision Making - Lab Data Result diagrams: 12/26/20 15:41 12/26/20 15:41 - EKG Data EKG shows normal: sinus rhythm, axis, intervals, QRS complexes, ST-T waves Rate: normal - EKG Data 12/26/20 22:46 MICHAEL no STEMI - Medical Decision Making Patient signed out by Vega Huerta PA-C for EKG and reexamination. EKG with right atrial enlargement, otherwise normal. Repeat vitals are within normal limits. Patient given 1 L of fluids and feels much better, she has no neuro deficits on exam, she is ambulating without difficulty. She states that she has an appointment with her primary care doctor tomorrow 12/27/2020. Labs with very mild dehydration, UA is within normal limits. Discussed all results with patient, discussed importance of oral hydration. Discussed strict return precautions. advised pt please increase your fluid intake over the next several days. follow up with your primary care doctor. return to the emergency room for any new or worsening symptoms. Critical care attestation.: If time is entered above; I have spent that time in minutes in the direct care of this critically ill patient, excluding procedure time. ED Disposition Is pt being admited?: No Does the pt Need Aspirin: No Time of Disposition: 22:31
[2020-12-26 22:29] VITALS: BP 115/76
== END 2020-12-26 22:50 | disposition home or self-care (01) ==
LOC: ED 15:34
DX: I95.1 Orthostatic hypotension (principal); R42 Dizziness and giddiness; I10 Essential (primary) hypertension; J45.909 Unspecified asthma, uncomplicated; Z79.899 Other long term (current) drug therapy; Z98.51 Tubal ligation status
CPT/HCPCS: 36415; 80053; 81001; 84484; 85025; 93005; 96360; 99284; J7030

== ENCOUNTER 2021-02-08 15:37 | Emergency (ER) | payer SELFPAY ==
[2021-02-08 16:48] VITALS: BP 145/102
[2021-02-08] MEDS ORDERED: SODIUM CHLORIDE 0.9% 1000 ML 1,000 ML IV ONE (16:49)
--- NOTE | 2021-02-08 16:52 | Event Note ---
ED Screening Note Date of service: 02/08/21 Time: 16:50 ED Screening Note: 40-year-old female patient with history of hypertension and orthostatic hypotension presents to the emergency department with complaints of progressively worsening dizziness for the last 2 months. Patient was evaluated for the symptoms a couple of months ago and diagnosed with orthostatic hypotension. She responded well initially to IV fluids, however her symptoms soon returned. She was evaluated by emergency room clinician, who confirmed this diagnosis following 24-hour Holter monitor. Her dizziness has worsened to the point where she cannot ambulate without using a walker to steady herself. She also reports consistently loose stools for the last 2 months. No recent changes to her blood pressure medication regimen. No recent trauma. No syncope. No chest pain or shortness of breath. Tachycardic in triage. General: Awake, appropriately interactive, no acute distress. Eyes: Extraocular movements intact. No nystagmus. Neck: Supple. Full range of motion intact. Cardiovascular: Tachycardic. Normal peripheral perfusion. Pulmonary: Clear to auscultation. No respiratory distress. Patient is speaking normally without use of accessory muscles. Skin: No apparent rashes or lesions. Neurological: No facial asymmetry. Speech is clear. Follows commands. Patient is alert and oriented. Musculoskeletal: Moves all four extremities spontaneously with normal range of motion. Psych: Cooperative. Appropriate mood and affect. I have greeted and performed a focused rapid initial assessment of this patient. A comprehensive ED assessment and evaluation of the patient, analysis of all test results, and completion of the medical decision-making process will be conducted by additional ED providers. This initial assessment/diagnostic orders/clinical plan/treatment(s) is/are subject to change based on patients health status, clinical progression and re-assessment. Further treatment and workup at subsequent clinical provider's discretion. Patient/guardian urged not to elope from the ED as their condition may be serious if not clinically assessed and managed.
[2021-02-08 17:28] LABS: Basophils # (Auto) 0.1 K/mm3 (0.0-0.1); Eosinophils # (Auto) 0.2 K/mm3 (0.0-0.4); Eosinophils % (Auto) 1.2 % (0.0-4.3); Hematocrit 40.4 % (30.3-42.9); Hemoglobin 14.1 gm/dl (10.1-14.3); Lymphocytes # (Auto) 1.7 K/mm3 (1.2-5.4); Lymphocytes % (Auto) 12.7 % (13.4-35.0); Mean Corpuscular HGB Conc 35 % (30-34); Mean Corpuscular Volume 90 fl (79-97); Monocytes # (Auto) 0.8 K/mm3 (0.0-0.8); Monocytes % (Auto) 5.6 % (0.0-7.3); Platelet Count 294 K/mm3 (140-440); Red Blood Count 4.47 M/mm3 (3.65-5.03)
[2021-02-08 18:04] LABS: Alanine Aminotransferase 14 units/L (7-56); Albumin 4.7 g/dL (3.9-5); Blood Urea Nitrogen 14 mg/dL (7-17); Calcium 9.6 mg/dL (8.4-10.2); Hemolysis Index 4
[2021-02-08 18:07] LABS: BUN/Creatinine Ratio 20
--- NOTE | 2021-02-08 18:33 | XRay Report ---
CHEST 2 VIEWS INDICATION / CLINICAL INFORMATION: dizziness. COMPARISON: 09/14/2020. FINDINGS: SUPPORT DEVICES: None. HEART / MEDIASTINUM: No significant abnormality. LUNGS / PLEURA: No significant pulmonary or pleural abnormality. No pneumothorax. ADDITIONAL FINDINGS: No significant additional findings. IMPRESSION: 1. No acute cardiopulmonary abnormality. Signer Name: Bhupinder Blakely MD Signed: 02/08/2021 6:29 PM Workstation Name: [id number]
== END 2021-02-08 22:00 | disposition left against medical advice (07) ==
LOC: ED 15:37
DX: R42 Dizziness and giddiness (principal); Z53.21 Procedure and treatment not carried out due to patient leaving prior to being seen by health care provider
CPT/HCPCS: 36415; 71046; 80053; 83735; 84100; 84436; 84443; 84484; 84703; 85025

== ENCOUNTER 2021-03-05 18:26 | Emergency (ER) | payer MEDICAID, MEDICARE ==
--- NOTE | 2021-03-05 21:08 | Event Note ---
ED Screening Note Date of service: 03/05/21 Time: 21:06 ED Screening Note: 40-year-old female patient with history of hypertension, asthma, and working diagnosis of Pott's disease presents to the emergency department with complaints of nontraumatic left lower back pain starting 2 days ago. Patient was previously diagnosed with a "cyst" on her left kidney approximately 2 years ago. Hypertensive in triage; patient admits she has not yet taken her blood pressure medication tonight. General: Awake, appropriately interactive, no acute distress. Neck: Supple. Full range of motion intact. Cardiovascular: Normal peripheral perfusion. Pulmonary: No respiratory distress. Patient is speaking normally without use of accessory muscles. Skin: No apparent rashes or lesions. Neurological: No facial asymmetry. Speech is clear. Follows commands. Patient is alert and oriented. Musculoskeletal: Moves all four extremities spontaneously with normal range of motion. Left lower lumbar tenderness. Psych: Cooperative. Appropriate mood and affect. I have greeted and performed a focused rapid initial assessment of this patient. A comprehensive ED assessment and evaluation of the patient, analysis of all test results, and completion of the medical decision-making process will be conducted by additional ED providers. This initial assessment/diagnostic orders/clinical plan/treatment(s) is/are subject to change based on patients health status, clinical progression and re-assessment. Further treatment and workup at subsequent clinical provider's discretion. Patient/guardian urged not to elope from the ED as their condition may be serious if not clinically assessed and managed.
[2021-03-05] MEDS ORDERED: traMADol 50 MG TAB PO ONE (21:24)
[2021-03-05 21:56] LABS: Basophils # (Auto) 0.1 K/mm3 (0.0-0.1); Basophils % (Auto) 1.2 % (0.0-1.8); Eosinophils # (Auto) 0.2 K/mm3 (0.0-0.4); Eosinophils % (Auto) 1.8 % (0.0-4.3); Hematocrit 36.2 % (30.3-42.9); Hemoglobin 12.5 gm/dl (10.1-14.3); Lymphocytes # (Auto) 2.2 K/mm3 (1.2-5.4); Lymphocytes % (Auto) 25.8 % (13.4-35.0); Mean Corpuscular HGB Conc 35 % (30-34); Mean Corpuscular Volume 92 fl (79-97); Monocytes # (Auto) 0.6 K/mm3 (0.0-0.8); Monocytes % (Auto) 7.1 % (0.0-7.3); Platelet Count 242 K/mm3 (140-440); Red Blood Count 3.94 M/mm3 (3.65-5.03); Red Cell Distribution Width 13.2 % (13.2-15.2)
[2021-03-05 22:05] LABS: RBC,Urine < 1.0 /HPF (0.0-6.0)
[2021-03-05 22:07] LABS: HCG Qualitative,Urine Negative (Negative)
[2021-03-05 22:16] LABS: Bilirubin,Urine NEG (Negative); Blood,Urine NEG (Negative); Color,Urine Straw (Yellow); Protein,Urine <15 mg/dL mg/dL (Negative); Urobilinogen,Urine < 2.0 mg/dL (<2.0)
[2021-03-05 22:17] LABS: WBC,Urine < 1.0 /HPF (0.0-6.0)
[2021-03-05 22:25] LABS: Alanine Aminotransferase 20 units/L (7-56); Albumin 4.2 g/dL (3.9-5); Blood Urea Nitrogen 10 mg/dL (7-17); Calcium 8.8 mg/dL (8.4-10.2); Hemolysis Index 3
[2021-03-05 22:31] LABS: BUN/Creatinine Ratio 14
[2021-03-05] MEDS ORDERED: MAGNESIUM OXIDE 400 MG TAB PO ONE (22:49)
--- NOTE | 2021-03-05 23:06 | Cat Scan Report ---
CT ABDOMEN AND PELVIS WITHOUT CONTRAST INDICATION / CLINICAL INFORMATION: Patient complains of LEFT sided flank pain. TECHNIQUE: Axial CT images were obtained through the abdomen and pelvis without IV contrast. All CT scans at this location are performed using CT dose reduction for ALARA by means of automated exposure control. COMPARISON: None available. FINDINGS: LOWER CHEST: No significant abnormality. LIVER: No significant abnormality. GALLBLADDER: No significant abnormality. BILE DUCTS: No significant abnormality. PANCREAS: No significant abnormality. SPLEEN: No significant abnormality. ADRENALS: No significant abnormality. RIGHT KIDNEY / URETER: Benign-appearing cyst. LEFT KIDNEY / URETER: Benign-appearing cyst. STOMACH / SMALL BOWEL: No significant abnormality. COLON: No significant abnormality. APPENDIX: No significant abnormality. PERITONEUM: No free fluid. No free air. No fluid collection. LYMPH NODES: No significant adenopathy. VASCULAR STRUCTURES: No significant abnormality. URINARY BLADDER: No significant abnormality. REPRODUCTIVE ORGANS: No significant abnormality. ADDITIONAL FINDINGS: None. SKELETAL SYSTEM: No significant abnormality. IMPRESSION: Negative for obstruction or localized inflammation. Signer Name: Lazaro Ro MD Signed: 03/05/2021 11:01 PM Workstation Name: [id number]
--- NOTE | 2021-03-05 23:25 | Emergency Department Report ---
ED Back Pain/Injury HPI - General Chief Complaint: Back Pain/Injury Stated Complaint: BACK PAIN, BACK BURNING AND NUMBNESS Time Seen by Provider: 03/05/21 21:22 Source: patient Limitations: No Limitations - History of Present Illness Initial Comments: Patient is a 40-year-old female presents emergency room with complaints of left flank and left lower back pain that began a couple days ago. She states that it feels like a burning sensation. She denies any fall or injury. She denies any fever, nausea, vomiting, diarrhea, chest pain, shortness of breath, cough, urinary symptoms, abdominal pain, numbness, weakness, bowel or bladder incontinence. She has a past medical history of hypertension, asthma and states that she is currently being worked up for pots disease. No allergies to medications. Last menstrual cycle 02/26/2021. Patient states that she just took her nighttime dose of her blood pressure medication as she walked into the emergency department. - Related Data Home Medications Medication Instructions Recorded Confirmed Last Taken LORazepam [Ativan] 1 mg PO QHS 09/14/20 09/14/20 09/13/20 Losartan [Cozaar] 25 mg PO BID 09/14/20 09/14/20 09/13/20 Previous Rx's Medication Instructions Recorded Last Taken Type Albuterol Mdi (or & Nicu Only) 2 puff IH QID PRN #8.5 gram 09/16/20 Unknown Rx [ProAir HFA Inhaler] Azithromycin [Zithromax TAB] 500 mg PO QDAY #3 tablet 09/16/20 Unknown Rx Budesonide/Formoterol Fumarate 10.2 gm IH BID #1 hfa.aer.ad 09/16/20 Unknown Rx [Symbicort 80-4.5 Mcg Inhaler] Prednisone [predniSONE 10 mg 10 mg PO .TAPER #1 tab.ds.pk 09/16/20 Unknown Rx (6-Day Pack, 21 Tabs)] Menthol/Camphor [[place] 1 applicatio TP BID #18 oint...g. 03/05/21 Unknown Rx Ointment] Naproxen [EC-Naprosyn] 500 mg PO BID PRN #14 tablet.dr 03/05/21 Unknown Rx methOCARBAMOL [Robaxin TAB] 500 mg PO BID PRN #14 tab 03/05/21 Unknown Rx traMADoL [Ultram 50 MG tab] 50 mg PO Q6HR PRN #10 tablet 03/05/21 Unknown Rx Allergies Allergy/AdvReac Type Severity Reaction Status Date / Time No Known Allergies Allergy Verified 12/21/14 01:59 ED Review of Systems ROS: Stated complaint: BACK PAIN, BACK BURNING AND NUMBNESS Other details as noted in HPI Comment: All other systems reviewed and negative ED Past Medical Hx - Past Medical History Previous Medical History?: Yes Hx Hypertension: Yes Hx Asthma: Yes - Surgical History Additional Surgical History: tubal ligation. - Social History Smoking Status: Never Smoker Substance Use Type: None - Medications Home Medications: Home Medications Medication Instructions Recorded Confirmed Last Taken Type LORazepam [Ativan] 1 mg PO QHS 09/14/20 09/14/20 09/13/20 History Losartan [Cozaar] 25 mg PO BID 09/14/20 09/14/20 09/13/20 History Albuterol Mdi (or & Nicu Only) 2 puff IH QID PRN #8.5 gram 09/16/20 Unknown Rx [ProAir HFA Inhaler] Azithromycin [Zithromax TAB] 500 mg PO QDAY #3 tablet 09/16/20 Unknown Rx Budesonide/Formoterol Fumarate 10.2 gm IH BID #1 hfa.aer.ad 09/16/20 Unknown Rx [Symbicort 80-4.5 Mcg Inhaler] Prednisone [predniSONE 10 mg 10 mg PO .TAPER #1 tab.ds.pk 09/16/20 Unknown Rx (6-Day Pack, 21 Tabs)] Menthol/Camphor [[place] 1 applicatio TP BID #18 oint...g. 03/05/21 Unknown Rx Ointment] Naproxen [EC-Naprosyn] 500 mg PO BID PRN #14 tablet.dr 03/05/21 Unknown Rx methOCARBAMOL [Robaxin TAB] 500 mg PO BID PRN #14 tab 03/05/21 Unknown Rx traMADoL [Ultram 50 MG tab] 50 mg PO Q6HR PRN #10 tablet 03/05/21 Unknown Rx ED Physical Exam - General Limitations: No Limitations General appearance: alert, in no apparent distress - Head Head exam: Present: atraumatic, normocephalic - Eye Eye exam: Present: normal appearance - ENT ENT exam: Present: mucous membranes moist - Neck Neck exam: Present: normal inspection, full ROM. Absent: tenderness, meningismus - Respiratory Respiratory exam: Present: normal lung sounds bilaterally. Absent: respiratory distress, wheezes, rales, rhonchi, stridor, chest wall tenderness, accessory muscle use, decreased breath sounds - Cardiovascular Cardiovascular Exam: Present: regular rate, normal rhythm, normal heart sounds. Absent: systolic murmur, diastolic murmur, rubs, gallop - GI/Abdominal GI/Abdominal exam: Present: soft, normal bowel sounds. Absent: distended, tenderness, guarding, rebound, rigid - Back Exam Back exam: Present: normal inspection, full ROM. Absent: paraspinal tenderness, vertebral tenderness - Neurological Exam Neurological exam: Present: alert, oriented X3, CN II-XII intact, normal gait. Absent: motor sensory deficit - Psychiatric Psychiatric exam: Present: normal affect, normal mood - Skin Skin exam: Present: warm, dry, intact ED Course Vital Signs 03/05/21 03/06/21 21:06 00:02 Temperature 98.6 F 98.1 F Pulse Rate 118 H 94 H Respiratory 18 17 Rate Blood Pressure 197/113 148/93 [Right] O2 Sat by Pulse 100 99 Oximetry ED Medical Decision Making - Lab Data Result diagrams: 03/05/21 21:34 03/05/21 21:34 Lab Results 03/05/21 03/05/21 03/05/21 Range/Units 21:32 21:34 21:34 WBC 8.6 (4.5-11.0) K/mm3 RBC 3.94 (3.65-5.03) M/mm3 Hgb 12.5 (10.1-14.3) gm/dl Hct 36.2 (30.3-42.9) % MCV 92 (79-97) fl MCH 32 (28-32) pg MCHC 35 H (30-34) % RDW 13.2 (13.2-15.2) % Plt Count 242 (140-440) K/mm3 Lymph % (Auto) 25.8 (13.4-35.0) % [place] % (Auto) 7.1 (0.0-7.3) % Eos % (Auto) 1.8 (0.0-4.3) % Baso % (Auto) 1.2 (0.0-1.8) % Lymph # (Auto) 2.2 (1.2-5.4) K/mm3 [place] # (Auto) 0.6 (0.0-0.8) K/mm3 Eos # (Auto) 0.2 (0.0-0.4) K/mm3 Baso # (Auto) 0.1 (0.0-0.1) K/mm3 Seg Neutrophils % 64.1 (40.0-70.0) % Seg Neutrophils # 5.5 (1.8-7.7) K/mm3 Sodium 136 L (137-145) mmol/L Potassium 3.8 (3.6-5.0) mmol/L Chloride 99.5 (98-107) mmol/L Carbon Dioxide 28 (22-30) mmol/L Anion Gap 12 mmol/L BUN 10 (7-17) mg/dL Creatinine 0.7 (0.6-1.2) mg/dL Estimated GFR > 60 ml/min BUN/Creatinine Ratio 14 % Glucose 137 H (65-100) mg/dL Calcium 8.8 (8.4-10.2) mg/dL Magnesium 1.60 L (1.7-2.3) mg/dL Total Bilirubin < 0.20 (0.1-1.2) mg/dL AST 19 (5-40) units/L ALT 20 (7-56) units/L Alkaline Phosphatase 87 (35-129) units/L Total Creatine Kinase 42 (30-135) units/L Total Protein 7.1 (6.3-8.2) g/dL Albumin 4.2 (3.9-5) g/dL Albumin/Globulin Ratio 1.4 % Lipase 28 (13-60) units/L Urine Color Straw (Yellow) Urine Turbidity Clear (Clear) Urine pH 6.0 (5.0-7.0) Ur Specific Isabella 1.008 (1.003-1.030) Urine Protein <15 mg/dl (Negative) mg/dL Urine Glucose (UA) Neg (Negative) mg/dL Urine Ketones Neg (Negative) mg/dL Urine Blood Neg (Negative) Urine Nitrite Neg (Negative) Ur Reducing Substances Not Reportable Urine Bilirubin Neg (Negative) Urine Ictotest Not Reportable Urine Urobilinogen < 2.0 (<2.0) mg/dL Ur Leukocyte Esterase Neg (Negative) Urine WBC (Auto) < 1.0 (0.0-6.0) /HPF Urine RBC (Auto) < 1.0 (0.0-6.0) /HPF U Epithel Cells (Auto) 1.0 (0-13.0) /HPF Urine HCG, Qual Negative (Negative) Vital Signs 03/05/21 03/06/21 21:06 00:02 Temperature 98.6 F 98.1 F Pulse Rate 118 H 94 H Respiratory 18 17 Rate Blood Pressure 197/113 148/93 [Right] O2 Sat by Pulse 100 99 Oximetry - Radiology Data Radiology results: report reviewed Ordering Physician: KRUNAL CORTÉS Date of Service: 03/05/21 Procedure(s): CT abdomen pelvis wo con Accession Number(s): [id number] cc: KRUNAL CORTÉS CT ABDOMEN AND PELVIS WITHOUT CONTRAST INDICATION / CLINICAL INFORMATION: Patient complains of LEFT sided flank pain. TECHNIQUE: Axial CT images were obtained through the abdomen and pelvis without IV contrast. All CT scans at this location are performed using CT dose reduction for ALARA by pallavi ns of automated exposure control. COMPARISON: None available. FINDINGS: LOWER CHEST: No significant abnormality. LIVER: No significant abnormality. GALLBLADDER: No significant abnormality. BILE DUCTS: No significant abnormality. PANCREAS: No significant abnormality. SPLEEN: No significant abnormality. ADRENALS: No significant abnormality. RIGHT KIDNEY / URETER: Benign-appearing cyst. LEFT KIDNEY / URETER: Benign-appearing cyst. STOMACH / SMALL BOWEL: No significant abnormality. COLON: No significant abnormality. APPENDIX: No significant abnormality. PERITONEUM: No free fluid. No free air. No fluid collection. LYMPH NODES: No significant adenopathy. VASCULAR STRUCTURES: No significant abnormality. URINARY BLADDER: No significant abnormality. REPRODUCTIVE ORGANS: No significant abnormality. ADDITIONAL FINDINGS: None. SKELETAL SYSTEM: No significant abnormality. IMPRESSION: Negative for obstruction or localized inflammation. Signer Name: Lazaro Ro MD Signed: 03/05/2021 11:01 PM Workstation Name: [id number] Transcribed By: AMBER Dictated By: Lazaro Ro MD Electronically Authenticated By: Lazaro Ro MD Signed Date/Time: 03/05/212300 DD/ 57 TD/TT: - Medical Decision Making Patient is a 40-year-old female presents emergency room with complaints of left flank and left lower back pain that began a couple days ago. She states that it feels like a burning sensation. She denies any fall or injury. She denies any fever, nausea, vomiting, diarrhea, chest pain, shortness of breath, cough, urinary symptoms, abdominal pain, numbness, weakness, bowel or bladder incontinence. She has a past medical history of hypertension, asthma and states that she is currently being worked up for pots disease. No allergies to medications. Last menstrual cycle 02/26/2021. Patient states that she just took her nighttime dose of her blood pressure medication as she walked into the emergency department. Initial vitals with tachycardia and elevated blood pressure which significantly improved upon repeat. On exam patient has no midline or paraspinal tenderness outpatient, soft, no deformities, no focal nubia ro deficits, no CVA tenderness. Labs are stable. Magnesium is low, given magnesium oxide. UA is within normal limits. CT abdomen pelvis without contrast IMPRESSION: Negative for obstruction or localized inflammation. Patient given medications on the emergency department and symptoms significantly improved and she was feeling much better ready to go home. Numbness could be related to muscle strain versus sciatica. Advised patient Please use medication as prescribed. Do not drive or operate heavy machinery while using severe pain medication or muscle relaxer. May use ice pack, heating pad, rest, and epsom salt bath. Follow-up with your primary care doctor for reexamination. Return to emergency room for new or worsening symptoms. Critical care attestation.: If time is entered above; I have spent that time in minutes in the direct care of this critically ill patient, excluding procedure time. ED Disposition Clinical Impression: Left flank pain, Hypomagnesemia Back pain Qualifiers: Back pain location: low back pain Chronicity: acute Back pain laterality: left Sciatica presence: without sciatica Qualified Code(s): M54.5 - Low back pain Disposition: - TO HOME OR SELFCARE Is pt being admited?: No Does the pt Need Aspirin: No Condition: Stable Instructions: Acute Back Pain, Adult, Flank Pain, Adult Additional Instructions: Please use medication as prescribed. Do not drive or operate heavy machinery while using severe pain medication or muscle relaxer. May use ice pack, heating pad, rest, and epsom salt bath. Follow-up with your primary care doctor for reexamination. Return to emergency room for new or worsening symptoms. Prescriptions: Naproxen [EC-Naprosyn] 500 mg PO BID PRN #14 tablet.dr PRN Reason: pain methOCARBAMOL [Robaxin TAB] 500 mg PO BID PRN #14 tab PRN Reason: pain Menthol/Camphor [[place] Ointment] 1 applicatio TP BID #18 oint...g. traMADoL [Ultram 50 MG tab] 50 mg PO Q6HR PRN #10 tablet PRN Reason: Pain , Severe (7-10) Referrals: PRIMARY CARE,MD [Primary Care Provider] - 2-3 Days Time of Disposition: 23:23 Print Language: SYRIAC
[2021-03-06 00:05] VITALS: BP 148/93
[2021-03-06] MEDS ORDERED: MAGNESIUM OXIDE 400 MG TAB PO ONE (22:28)
== END 2021-03-06 00:02 | disposition home or self-care (01) ==
LOC: ED 18:26
DX: M54.5 Low back pain (principal); E83.42 Hypomagnesemia; R10.9 Unspecified abdominal pain; I10 Essential (primary) hypertension; J45.909 Unspecified asthma, uncomplicated; Z98.51 Tubal ligation status; Z79.2 Long term (current) use of antibiotics; Z79.899 Other long term (current) drug therapy
CPT/HCPCS: 36415; 74176; 80053; 81001; 81025; 82550; 83690; 83735; 85025

== ENCOUNTER 2021-06-28 15:51 | Emergency (ER) | payer MEDICAID ==
[2021-06-28 16:52] VITALS: BP 150/92
[2021-06-28 17:49] LABS: Bacteria,Urine 1+ /HPF (Negative); Bilirubin,Urine NEG (Negative); Blood,Urine NEG (Negative); Color,Urine Straw (Yellow); Mucus,Urine FEW /HPF; Protein,Urine <15 mg/dL mg/dL (Negative); Urobilinogen,Urine < 2.0 mg/dL (<2.0)
[2021-06-28 18:08] LABS: Basophils # (Auto) 0.1 K/mm3 (0.0-0.1); Basophils % (Auto) 1.3 % (0.0-1.8); Eosinophils # (Auto) 0.1 K/mm3 (0.0-0.4); Eosinophils % (Auto) 0.7 % (0.0-4.3); Hematocrit 37.9 % (30.3-42.9); Lymphocytes % (Auto) 24.6 % (13.4-35.0); Mean Corpuscular HGB Conc 34 % (30-34); Mean Corpuscular Volume 88 fl (79-97); Monocytes # (Auto) 0.5 K/mm3 (0.0-0.8); Monocytes % (Auto) 5.7 % (0.0-7.3); Platelet Count 245 K/mm3 (140-440); Red Blood Count 4.28 M/mm3 (3.65-5.03); Red Cell Distribution Width 13.1 % (13.2-15.2)
[2021-06-28 18:32] LABS: HCG Qualitative,Urine Negative (Negative)
[2021-06-28 18:38] LABS: Alanine Aminotransferase 16 units/L (7-56); Albumin 4.3 g/dL (3.9-5); Blood Urea Nitrogen 7 mg/dL (7-17); Calcium 9.1 mg/dL (8.4-10.2); Hemolysis Index 2
[2021-06-28 18:48] LABS: BUN/Creatinine Ratio 10
--- NOTE | 2021-06-28 19:11 | Emergency Department Report ---
ED General Adult HPI - General Chief complaint: Abdominal Pain Stated complaint: (R) LOW STOMACH PAIN/UPPER (R) LEG PAIN Time Seen by Provider: 06/28/21 19:06 Source: patient Mode of arrival: Ambulatory Limitations: No Limitations - History of Present Illness Initial comments: Patient is a 40-year-old female presents emergency room complaints of right g roin pain that occurred last night. She states that she felt it whenever she got up to get off the couch. She states that she was feeling the pain with movement. She states that her pain has significantly gotten better. She denies any fever, nausea, vomiting, diarrhea, urinary symptoms. She denies any fall or injury. She is amatory without difficulty. She denies any numbness or weakness. Past medical history of hypertension. No allergies to medications. She states that she had a tubal ligation. - Related Data Home Medications Medication Instructions Recorded Confirmed Last Taken LORazepam [Ativan] 1 mg PO QHS 09/14/20 09/14/20 09/13/20 Losartan [Cozaar] 25 mg PO BID 09/14/20 09/14/20 09/13/20 Previous Rx's Medication Instructions Recorded Last Taken Type Albuterol Mdi (or & Nicu Only) 2 puff IH QID PRN #8.5 gram 09/16/20 Unknown Rx [ProAir HFA Inhaler] Azithromycin [Zithromax TAB] 500 mg PO QDAY #3 tablet 09/16/20 Unknown Rx Budesonide/Formoterol Fumarate 10.2 gm IH BID #1 hfa.aer.ad 09/16/20 Unknown Rx [Symbicort 80-4.5 Mcg Inhaler] Prednisone [predniSONE 10 mg 10 mg PO .TAPER #1 tab.ds.pk 09/16/20 Unknown Rx (6-Day Pack, 21 Tabs)] Menthol/Camphor [[place] 1 applicatio TP BID #18 oint...g. 03/05/21 Unknown Rx Ointment] Naproxen [EC-Naprosyn] 500 mg PO BID PRN #14 tablet. 03/05/21 Unknown Rx methOCARBAMOL [Robaxin TAB] 500 mg PO BID PRN #14 tab 03/05/21 Unknown Rx traMADoL [Ultram 50 MG tab] 50 mg PO Q6HR PRN #10 tablet 03/05/21 Unknown Rx Naproxen 375 mg PO BID PRN #14 tablet 06/28/21 Unknown Rx methOCARBAMOL [Robaxin TAB] 500 mg PO BID PRN #14 tab 06/28/21 Unknown Rx Allergies Allergy/AdvReac Type Severity Reaction Status Date / Time No Known Allergies Allergy Verified 12/21/14 01:59 ED Review of Systems ROS: Stated complaint: (R) LOW STOMACH PAIN/UPPER (R) LEG PAIN Other details as noted in HPI Comment: All other systems reviewed and negative ED Past Medical Hx - Past Medical History Previous Medical History?: Yes Hx Hypertension: Yes Hx Asthma: Yes - Surgical History Past Surgical History?: Yes Additional Surgical History: tubal ligation. - Social History Smoking Status: Never Smoker Substance Use Type: None - Medications Home Medications: Home Medications Medication Instructions Recorded Confirmed Last Taken Type LORazepam [Ativan] 1 mg PO QHS 09/14/20 09/14/20 09/13/20 History Losartan [Cozaar] 25 mg PO BID 09/14/20 09/14/20 09/13/20 History Albuterol Mdi (or & Nicu Only) 2 puff IH QID PRN #8.5 gram 09/16/20 Unknown Rx [ProAir HFA Inhaler] Azithromycin [Zithromax TAB] 500 mg PO QDAY #3 tablet 09/16/20 Unknown Rx Budesonide/Formoterol Fumarate 10.2 gm IH BID #1 hfa.aer.ad 09/16/20 Unknown Rx [Symbicort 80-4.5 Mcg Inhaler] Prednisone [predniSONE 10 mg 10 mg PO .TAPER #1 tab.ds.pk 09/16/20 Unknown Rx (6-Day Pack, 21 Tabs)] Menthol/Camphor [[place] 1 applicatio TP BID #18 oint...g. 03/05/21 Unknown Rx Ointment] Naproxen [EC-Naprosyn] 500 mg PO BID PRN #14 tablet. 03/05/21 Unknown Rx methOCARBAMOL [Robaxin TAB] 500 mg PO BID PRN #14 tab 03/05/21 Unknown Rx traMADoL [Ultram 50 MG tab] 50 mg PO Q6HR PRN #10 tablet 03/05/21 Unknown Rx Naproxen 375 mg PO BID PRN #14 tablet 06/28/21 Unknown Rx methOCARBAMOL [Robaxin TAB] 500 mg PO BID PRN #14 tab 06/28/21 Unknown Rx ED Physical Exam - General Limitations: No Limitations General appearance: alert, in no apparent distress - Head Head exam: Present: atraumatic, normocephalic - Eye Eye exam: Present: normal appearance - ENT ENT exam: Present: mucous membranes moist - Respiratory Respiratory exam: Present: normal lung sounds bilaterally. Absent: respiratory distress, wheezes, rales, rhonchi, stridor, chest wall tenderness, accessory muscle use, decreased breath sounds, prolonged expiratory - Cardiovascular Cardiovascular Exam: Present: regular rate, normal rhythm, normal heart sounds. Absent: systolic murmur, diastolic murmur, rubs, gallop - GI/Abdominal GI/Abdominal exam: Present: soft, normal bowel sounds, other (no ttp at murphys or mcburneys, no pain with heel tap ). Absent: distended, tenderness, guarding, rebound, rigid, hernia - Back Exam Back exam: Present: other (no bony ttp of the RLE, FROM of the RLE, no edema, no skin changes, neurovascularly intact) - Neurological Exam Neurological exam: Present: alert, oriented X3 - Psychiatric Psychiatric exam: Present: normal affect, normal mood - Skin Skin exam: Present: warm, dry, intact ED Course Vital Signs 06/28/21 16:50 Temperature 98.2 F Pulse Rate 105 H Respiratory 18 Rate Blood Pressure 150/92 O2 Sat by Pulse 99 Oximetry ED Medical Decision Making - Lab Data Result diagrams: 06/28/21 17:41 06/28/21 17:41 - Medical Decision Making Patient is a 40-year-old female presents emergency room complaints of right groin pain that occurred last night. She states that she felt it whenever she got up to get off the couch. She states that she was feeling the pain with movement. She states that her pain has significantly gotten better. She denies any fever, nausea, vomiting, diarrhea, urinary symptoms. She denies any fall or injury. She is amatory without difficulty. She denies any numbness or weakness. Past medical history of hypertension. No allergies to medications. She states that she had a tubal ligation. Vitals are stable. Patient has no abdominal tenderness on exam, no guarding, no rebound, no rigidity, normal pulses, no peritoneal signs, no Ruano's or McBurney's point tenderness, no pain with heel tap, full range of motion of the right lower extremity, no signs of hernia. Labs with mildly elevated blood glucose, otherwise stable. UA without evidence of UTI. Symptoms could be related to strain of hip flexors as she experience the pain when she first got off the couch. Discussed the importance of outpatient primary care follow-up within the next 3 days to be reexamined. Discussed very strict return precautions in detail with patient. Patient given prescription for medication. Advised patient Please take medication as prescribed as needed. Follow-up with your primary care doctor within the next 3 days for reexamination. Please follow-up with your primary care doctor regarding the elevation in your blood sugar during today's visit. Return to emergency room immediately for any new or worsening symptoms including but not limited to worsening pain, fever, vomiting, unable to tolerate by mouth intake, etc. Critical care attestation.: If time is entered above; I have spent that time in minutes in the direct care of this critically ill patient, excluding procedure time. ED Disposition Clinical Impression: Right groin pain, Elevated random blood glucose level Disposition: 01 HOME / SELF CARE / HOMELESS Is pt being admited?: No Does the pt Need Aspirin: No Condition: Stable Instructions: Abdominal Pain (ED) Additional Instructions: Please take medication as prescribed as needed. Follow-up with your primary care doctor within the next 3 days for reexamination. Please follow-up with your primary care doctor regarding the elevation in your blood sugar during today's visit. Return to emergency room immediately for any new or worsening symptoms including but not limited to worsening pain, fever, vomiting, unable to tolerate by mouth intake, etc. Prescriptions: Naproxen 375 mg PO BID PRN #14 tablet PRN Reason: pain methOCARBAMOL [Robaxin TAB] 500 mg PO BID PRN #14 tab PRN Reason: muscle spasm/pain Referrals: your, primary care doctor [Other] - 2-3 Days Time of Disposition: 19:13 Print Language: ARMENIAN
== END 2021-06-28 19:16 | disposition home or self-care (01) ==
LOC: ED 15:51
DX: R10.31 Right lower quadrant pain (principal); R73.09 Other abnormal glucose; I10 Essential (primary) hypertension; J45.909 Unspecified asthma, uncomplicated; Z98.51 Tubal ligation status; Z79.899 Other long term (current) drug therapy
CPT/HCPCS: 36415; 80053; 81001; 81025; 83690; 85025; 99283

== ENCOUNTER 2021-11-19 07:52 | Emergency (ER) | payer MEDICARE ==
[2021-11-19] MEDS ORDERED: predniSONE 50 MG TAB PO ONE (08:32)
--- NOTE | 2021-11-19 08:39 | Emergency Department Report ---
Minor Respiratory - HPI Chief Complaint: Chest Pain Stated Complaint: CHEST TIGHT/DIFFICULTY BREATHING Time Seen by Provider: 11/19/21 08:29 Duration: Today Minor Respiratory: Yes Shortness of Breath (slight), No Rhinorrhea, No Sore Throat, No Able to Tolerate Fluids, No Ear Pain, No Cough, No Sick Contacts, No Hemoptysis, No Chest Pain Other History: 41-year-old obese female presents to the emergency room complaining of a little chest tightness and a little shortness of breath. Patient states that she had Covid back February 2020. She states that she was recently vaccinated last week for Covid. She states that her primary care provider told her she has Covid lung long halacey. Patient states she has been given herself albuterol treatments. States her last period was 11/04/2021. She has a history of hypertension, asthma, Covid long hauler, hypercholesterolemia and anxiety. States her primary care provider is Dr. Steve Smith. ED Review of Systems ROS: Stated complaint: CHEST TIGHT/DIFFICULTY BREATHING Other details as noted in HPI ED Past Medical Hx - Past Medical History Hx Hypertension: Yes Hx Asthma: Yes - Surgical History Additional Surgical History: tubal ligation. - Social History Smoking Status: Never Smoker Substance Use Type: None - Medications Home Medications: Home Medications Medication Instructions Recorded Confirmed Last Taken Type LORazepam [Ativan] 1 mg PO QHS 09/14/20 09/14/20 09/13/20 History Losartan [Cozaar] 25 mg PO BID 09/14/20 09/14/20 09/13/20 History Albuterol Mdi (or & Nicu Only) 2 puff IH QID PRN #8.5 gram 09/16/20 Unknown Rx [ProAir HFA Inhaler] Azithromycin [Zithromax TAB] 500 mg PO QDAY #3 tablet 09/16/20 Unknown Rx Budesonide/Formoterol Fumarate 10.2 gm IH BID #1 hfa.aer.ad 09/16/20 Unknown Rx [Symbicort 80-4.5 Mcg Inhaler] Menthol/Camphor [[place] Festus 1 applicatio TP BID #18 oint...g. 03/05/21 Unknown Rx Ointment] Naproxen [EC-Naprosyn] 500 mg PO BID PRN #14 tablet. 03/05/21 Unknown Rx methOCARBAMOL [Robaxin TAB] 500 mg PO BID PRN #14 tab 03/05/21 Unknown Rx traMADoL [Ultram 50 MG tab] 50 mg PO Q6HR PRN #10 tablet 03/05/21 Unknown Rx Naproxen 375 mg PO BID PRN #14 tablet 06/28/21 Unknown Rx methOCARBAMOL [Robaxin TAB] 500 mg PO BID PRN #14 tab 06/28/21 Unknown Rx Prednisone [predniSONE 10 mg 10 mg PO .TAPER #1 tab.ds.pk 11/19/21 Unknown Rx (6-Day Pack, 21 Tabs)] Minor Respiratory Exam - Exam General: Vital signs noted. No distress. Alert and acting appropriately. HEENT: Yes Moist Mucous Membranes, No Pharyngeal Erythema, No Pharyngeal Exudates, No Rhinorrhea, No Conjuctival Injection, No Frontal Tenderness, No Maxillary Tenderness Ear: Neither TM Bulge, Neither TM Erythema, Neither EAC Pain, Neither EAC Discharge Neck: Yes Supple, No Adenopathy Lungs: Yes Good Air Exchange, No Wheezes, No Ronchi, No Stridor, No Cough, No Labored Respirations, No Retractions, No Use of Accessory Muscles, No Other Abnormal Lung Sounds Heart: Yes Regular, No Murmur Abdomen: Yes Normal Bowel Sounds, No Tenderness, No Peritoneal Signs Skin: No Rash, No Edema Neurologic: Alert and oriented, no deficits. Musculoskeletal: Unremarkable. ED Course Vital Signs 11/19/21 08:12 Temperature 98.5 F Pulse Rate 125 H Respiratory 24 Rate Blood Pressure 182/98 [Left] O2 Sat by Pulse 98 Oximetry ED Medical Decision Making - Radiology Data Radiology results: report reviewed [address] [address] XRay Report Signed Patient: EMMANUEL MATTHEWS MR#: [id number] : 1980 Acct:[id number] Age/Sex: 41 / F ADM Date: 11/19/21 Loc: ED Attending Dr: Ordering Physician: KRUNAL GARCIA Date of Service: 11/19/21 Procedure(s): XR chest routine 2V Accession Number(s): [id number] cc: KRUNAL GARCIA Fluoro Time In Minutes: CHEST 2 VIEWS INDICATION: sob,chest tightness. COMPARISON: 02/08/2021 FINDINGS: Support devices: None. Heart: Within normal limits. Lungs/pleura: No acute air space or interstitial disease. No pleural abnormality or pneumothorax. Additional findings: None. IMPRESSION: No acute findings. Signer Name: Dusty Street Jr, MD Signed: 11/19/2021 9:09 AM Workstation Name: [id number] Transcribed By: TTR Dictated By: DUSTY STREET JR, MD Electronically Authenticated By: DUSTY STREET JR, MD Signed Date/Time: 11/19/21908 DD/ 8 TD/TT: - Medical Decision Making 41-year-old obese female presents to the emergency room complaining of a little chest tightness and a little shortness of breath. Patient states that she had Covid back February 2020. She states that she was recently vaccinated last week for Covid. She states that her primary care provider told her she has Covid lung long hauler. Patient states she has been given herself albuterol treatments. States her last period was 11/04/2021. She has a history of hypertension, asthma, Covid long hauler, hypercholesterolemia and anxiety. States her primary care provider is Dr. Steve Smith. Chest ray is ordered patient is given prednisone 50 mg. Critical care attestation.: If time is entered above; I have spent that time in minutes in the direct care of this critically ill patient, excluding procedure time. ED Disposition Clinical Impression: SOB (shortness of breath) Disposition: HOME / SELF CARE / HOMELESS Is pt being admited?: No Does the pt Need Aspirin: No Condition: Stable Additional Instructions: Chest x-ray is negative for any acute findings. Vital signs are stable. Placing on prednisone for the next 5 days and to continue with your breathing treatments increase your fluids and follow-up with your primary care provider. Prescriptions: Prednisone [predniSONE 10 mg (6-Day Pack, 21 Tabs)] 10 mg PO .TAPER #1 tab.ds.pk Referrals: STEVE SMITH MD [Referring] - 3-5 Days Forms: Work/School Release Form(ED) Time of Disposition: 09:41
--- NOTE | 2021-11-19 09:14 | XRay Report ---
CHEST 2 VIEWS INDICATION: sob,chest tightness. COMPARISON: 02/08/2021 FINDINGS: Support devices: None. Heart: Within normal limits. Lungs/pleura: No acute air space or interstitial disease. No pleural abnormality or pneumothorax. Additional findings: None. IMPRESSION: No acute findings. Signer Name: Dusty Street Jr, MD Signed: 11/19/2021 9:09 AM Workstation Name: [id number]
[2021-11-19 09:51] VITALS: BP 122/87
== END 2021-11-19 09:50 | disposition home or self-care (01) ==
LOC: ED 07:52
DX: R06.02 Shortness of breath (principal); I10 Essential (primary) hypertension; J45.909 Unspecified asthma, uncomplicated; E78.00 Pure hypercholesterolemia, unspecified; Z98.51 Tubal ligation status
CPT/HCPCS: 71046; 99283; J7512

== ENCOUNTER 2022-06-15 20:35 | Emergency (ER) | payer MEDICARE ==
[2022-06-15 21:03] VITALS: BP 139/99
--- NOTE | 2022-06-17 13:58 | Electrocardiograph Report ---
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
== END 2022-06-16 00:20 | disposition left against medical advice (07) ==
LOC: ED 20:35
DX: I10 Essential (primary) hypertension (principal); Z53.21 Procedure and treatment not carried out due to patient leaving prior to being seen by health care provider
CPT/HCPCS: 93005